=== PATIENT | male | born 1980 | race Two or more races ===

== ENCOUNTER 2018-06-09 11:54 | Emergency (ER) | payer SELFPAY ==
[~2018-06-09] VITALS: Ht 188 cm; Wt 136.1 kg
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
[2018-06-09] MEDS ORDERED: IBUPROFEN 600 MG TABLET PO ONE ×2 (12:48→13:00)
[2018-06-09] MEDS ORDERED: oxyCODONE/APAP (5/325 MG) 1 UDTAB TABLET ONE (12:48)
[2018-06-09] MEDS ORDERED: ONDANSETRON 4 MG TAB.RAPDIS ONE (12:49)
--- NOTE | 2018-06-09 12:53 | NUR ---
XRAY AT BEDSIDE
[2018-06-09] MEDS ORDERED: oxyCODONE/APAP (5/325 MG) 1 UDTAB TABLET PO ONE (13:00)
[2018-06-09] MEDS ORDERED: ONDANSETRON 4 MG TAB.RAPDIS SL ONE (13:00)
--- NOTE | 2018-06-09 13:23 | NUR ---
EMT AT BEDSIDE FOR SPLINT APPLICATION
--- NOTE | 2018-06-09 13:55 | NUR ---
Patient discharged to home in stable condition. Written and verbal after care instructions given. Patient verbalizes understanding of instruction.
[2018-06-09 13:57] VITALS: BP 141/89
== END 2018-06-09 13:50 | disposition home or self-care (01) ==
LOC: ER 11:56
DX: S52.121A Displaced fracture of head of right radius, initial encounter for closed fracture (principal); E11.9 Type 2 diabetes mellitus without complications; W05.1XXA Fall from non-moving nonmotorized scooter, initial encounter; Y93.89 Activity, other specified; Y92.89 Other specified places as the place of occurrence of the external cause; Y99.8 Other external cause status
CPT/HCPCS: 29105; 73080; 73090; 99284; A4606; Q0162; Z7610